=== PATIENT | female | born 1980 | race Caucasian/White ===

== ENCOUNTER 2017-06-28 09:47 | Emergency (ER) | payer BC ==
[~2017-06-28] VITALS: Ht 167.6 cm; Wt 131.5 kg
[2017-06-28] MEDS ORDERED: DEPO-ESTRAD5 MG/1 ML IM (10:00)
[2017-06-28] MEDS ORDERED: NAPROSYN500 MG PO (11:03)
[2017-06-28] MEDS ORDERED: ZANAFLEX4 MG PO (11:03)
[2017-06-28 11:20] VITALS: BP 165/105
== END 2017-06-28 11:23 | disposition home or self-care (01) ==
LOC: M.ERS 09:47
DX: S39.012A Strain of muscle, fascia and tendon of lower back, initial encounter (principal); X58.XXXA Exposure to other specified factors, initial encounter; Y93.89 Activity, other specified; Y92.89 Other specified places as the place of occurrence of the external cause; Y99.8 Other external cause status